=== PATIENT | male | born 1970 | race Caucasian/White ===

== ENCOUNTER 2020-10-11 11:07 | Emergency (ER) | payer OTHER ==
[2020-10-11] MEDS ORDERED: DIPH,PERTUS(ACELL)TETVAC-LF 0.5 ML VIAL IM ONE (14:39)
--- NOTE | 2020-10-11 14:42 | ED ---
Fall HPI - General Chief Complaint: Fall Stated Complaint: [facility]-head injury Source: patient Mode of arrival: ambulatory - History of Present Illness Initial Comments: 50-year-old male presenting to the emergency room with chief complaint of a laceration. Patient states he was at work when he had a mechanical fall and hit his head on a machine on the way down. Patient denies any loss of consciousness but did reports some his initial initially which has since resolved. He does report mild swelling on his forehead and a small laceration. Reports the bleeding has since resolved. Denies any headaches, lightheadedness or dizziness since. Denies one sided weakness and paresthesias, blurry vision or gait instability. Tetanus not up-to-date. - Related Data Allergies Allergy/AdvReac Type Severity Reaction Status Date / Time No Known Allergies Allergy Verified 10/11/20 12:33 Review of Systems ROS Statement: Those systems with pertinent positive or pertinent negative responses have been documented in the HPI. ROS Other: All systems not noted in ROS Statement are negative. Past Medical History Past Medical History: No Reported History History of Any Multi-Drug Resistant Organisms: None Reported Past Surgical History: No Surgical Hx Reported Past Psychological History: No Psychological Hx Reported Smoking Status: Current every day smoker Past Alcohol Use History: Occasional Past Drug Use History: None Reported General Exam Limitations: no limitations General appearance: alert, in no apparent distress Head exam: Present: normocephalic, normal inspection. Absent: atraumatic (Small hematoma on the left upper forehead. Small laceration measuring approximately 5 mm.), other (Negative Rosales sign, raccoon eyes, hemotympanum.) Eye exam: Present: normal appearance, PERRL, EOMI Pupils: Present: normal accommodation ENT exam: Present: normal exam, normal oropharynx, mucous membranes moist Neck exam: Present: normal inspection, full ROM. Absent: tenderness Respiratory exam: Present: normal lung sounds bilaterally. Absent: respiratory distress, wheezes, rales, rhonchi, stridor, chest wall tenderness Cardiovascular Exam: Present: regular rate, normal rhythm, normal heart sounds Extremities exam: Present: normal inspection, full ROM, normal capillary refill. Absent: tenderness Back exam: Present: normal inspection, full ROM. Absent: tenderness, CVA tenderness (R), CVA tenderness (L) Neurological exam: Present: alert, oriented X3 Psychiatric exam: Present: normal affect, normal mood Skin exam: Present: warm, dry, intact, normal color Course Vital Signs 10/11/20 12:30 Temperature 98.7 F Pulse Rate 84 Respiratory 20 Rate Blood Pressure 160/96 O2 Sat by Pulse 99 Oximetry Medical Decision Making - Medical Decision Making 50-year-old male presents to the emergency department with a chief complaint of a laceration. On physical examination, patient does have a hematoma and a small laceration that does not need laceration repair. I did apply a Steri-Strip. Tetanus was updated. I did offer CT imaging of the head, he declined. Advised the patient to follow-up with his primary care physician. Advised them to return to emergency department if symptoms worsen. Advised physical mental rest over the next 2-3 days. Case discussed with Disposition Clinical Impression: Fall, Laceration Disposition: HOME SELF-CARE Condition: Stable Instructions (If sedation given, give patient instructions): Fall Prevention (ED) Additional Instructions: Please return to the Emergency Department if symptoms worsen or any other concerns. Is patient prescribed a controlled substance at d/c from ED?: No Referrals: None,Stated [Primary Care Provider] - 1-2 days Time of Disposition: 14:42
[2020-10-11 15:36] VITALS: BP 170/100; PULSE 81; RESP 18; TEMP 98.4
== END 2020-10-11 15:10 | disposition home or self-care (01) ==
LOC: EC 11:07
DX: S01.81XA Laceration without foreign body of other part of head, initial encounter (principal); F17.200 Nicotine dependence, unspecified, uncomplicated; Z23 Encounter for immunization; W01.198A Fall on same level from slipping, tripping and stumbling with subsequent striking against other object, initial encounter; Y92.69 Other specified industrial and construction area as the place of occurrence of the external cause; Y99.0 Civilian activity done for income or pay
CPT/HCPCS: 90471; 90715; 99282

== ENCOUNTER 2024-03-19 07:22 | Emergency (ER) | payer SELFPAY ==
[2024-03-19 07:26] VITALS: TEMP 98
[2024-03-19 07:52] VITALS: RESP 18
--- NOTE | 2024-03-19 07:53 | ED ---
Back Pain HPI - General Chief Complaint: Back Pain/Injury Stated Complaint: Fall/Back Pain Time Seen by Provider: 03/19/24 07:34 Source: patient Limitations: no limitations - History of Present Illness Initial Comments: 53 year old male presents to emergency department with chief complaints of right rib and back pain. Patient reports fall two days ago unrelated to syncope, denie s hitting head, does report right elbow tenderness. Pain is 8/10, radiating from right ribs to spine. Denies loss of consciousness, chest pain, shortness of breath, abdominal pain, and hematuria. MD Complaint: fall - Related Data Allergies Allergy/AdvReac Type Severity Reaction Status Date / Time No Known Allergies Allergy Verified 10/11/20 12:33 Review of Systems ROS Statement: Those systems with pertinent positive or pertinent negative responses have been documented in the HPI. ROS Other: All systems not noted in ROS Statement are negative. Past Medical History Past Medical History: No Reported History Additional Past Medical History / Comment(s): tremors History of Any Multi-Drug Resistant Organisms: None Reported Past Surgical History: No Surgical Hx Reported Past Psychological History: No Psychological Hx Reported Smoking Status: Current every day smoker Past Alcohol Use History: Occasional Past Drug Use History: None Reported General Exam Limitations: no limitations Head exam: Present: atraumatic, normocephalic, normal inspection Eye exam: Present: normal appearance, PERRL, EOMI. Absent: scleral icterus, conjunctival injection, periorbital swelling Pupils: Present: normal accommodation ENT exam: Present: normal exam, mucous membranes moist Neck exam: Present: normal inspection. Absent: tenderness, meningismus, lymphadenopathy Respiratory exam: Present: normal lung sounds bilaterally, chest wall tenderness. Absent: respiratory distress, wheezes, rales, rhonchi, stridor Cardiovascular Exam: Present: regular rate, normal rhythm, normal heart sounds. Absent: systolic murmur, diastolic murmur, rubs, gallop, clicks GI/Abdominal exam: Present: soft, normal bowel sounds. Absent: distended, tenderness, guarding, rebound, rigid Extremities exam: Present: full ROM Right General: Present: abrasion Elbow exam: Present: swelling, abrasion, erythema Back exam: Present: full ROM, tenderness (right rib), CVA tenderness (R), paraspinal tenderness. Absent: vertebral tenderness Neurological exam: Present: alert, oriented X3, CN II-XII intact, normal gait Psychiatric exam: Present: normal affect, normal mood Skin exam: Present: warm, dry, intact, normal color. Absent: rash Course Vital Signs 03/19/24 03/19/24 03/19/24 07:24 07:51 08:45 Temperature 98 F 98 F Pulse Rate 100 84 Respiratory 20 18 Rate Blood Pressure 169/115 180/107 177/93 O2 Sat by Pulse 98 99 Oximetry 03/19/24 09:39 Temperature 98 F Pulse Rate 83 Respiratory 18 Rate Blood Pressure 171/89 O2 Sat by Pulse 99 Oximetry Medical Decision Making - Medical Decision Making Was pt. sent in by a medical professional or institution (, PA, PALLET RECTIFIER, urgent care, hospital, or half-way...) When possible be specific @ -No Did you speak to anyone other than the patient for history (EMS, parent, family, police, friend...)? What history was obtained from this source @ -No Did you review nursing and triage notes (agree or disagree)? Why? @ -I reviewed and agree with nursing and triage notes Were old charts reviewed (outside hosp., previous admission, EMS record, old EKG, old radiological studies, urgent care reports/EKG's, half-way records)? Report findings @ -No old charts were reviewed Differential Diagnosis (chest pain, altered mental status, abdominal pain women, abdominal pain men, vaginal bleeding, weakness, fever, dyspnea, syncope, headache, dizziness, GI bleed, back pain, seizure, CVA, palpatations, mental health, musculoskeletal)? @ -Differential Back Pain: Strain, zoster, cauda equina syndrome, epidural abscess, vertebral osteomyelitis, discitis, fracture, subluxation, disc herniation, DJD, spinal stenosis, dissection, AAA, pancreatitis, peptic ulcer disease, pyelonephritis, kidney stone, this is not meant to be an all-inclusive list. EKG interpreted by me (3pts min.). @ -None X-rays interpreted by me (1pt min.). @ -X-ray rib series with chest x-ray showing millimeters place rib fracture no pneumothorax CT interpreted by me (1pt min.). @ -None done U/S interpreted by me (1pt. min.). @ -None done What testing was considered but not performed or refused? (CT, X-rays, U/S, labs)? Why? @ -None What meds were considered but not given or refused? Why? @ -None Did you discuss the management of the patient with other professionals (professionals i.e. , PA, PALLET RECTIFIER, lab, RT, psych nurse, long term care social worker, toy department manager, teacher, loan workout officer, geriatric case manager)? Give summary @ -No Was smoking cessation discussed for >3mins.? @ -No Was critical care preformed (if so, how long)? @ -No Were there social determinants of health that impacted care today? How? (Homelessness, low income, unemployed, alcoholism, drug addiction, transportation, low edu. Level, literacy, decrease access to med. care, [facility], rehab)? @ -No Was there de-escalation of care discussed even if they declined (Discuss DNR or withdrawal of care, Hospice)? DNR status @ -No What co-morbidities impacted this encounter? (DM, HTN, Smoking, COPD, CAD, Cancer, CVA, ARF, Chemo, Hep., AIDS, mental health diagnosis, sleep apnea, morbid obesity)? @ -None Was patient admitted / discharged? Hospital course, mention meds given and route, prescriptions, significant lab abnormalities, going to OR and other pertinent info. @ -Discharge patient has a rib fracture patient is not hypoxic and having no severe pain. We discussed incentive spirometry and analgesics [id number] patient will recheck in 24 hours return for as discussed Undiagnosed new problem with uncertain prognosis? @ -No Drug Therapy requiring intensive monitoring for toxicity (Heparin, Nitro, Insulin, Cardizem)? @ -No Were any procedures done? @ -No Diagnosis/symptom? @ -Fall, rib fracture Acute, or Chronic, or Acute on Chronic? @ -[Acute Uncomplicated (without systemic symptoms) or Complicated (systemic symptoms)? @ -Uncomplicated Side effects of treatment? @ -No Exacerbation, Progression, or Severe Exacerbation? @ -No Poses a threat to life or bodily function? How? (Chest pain, USA, SC, pneumonia, PE, COPD, DKA, ARF, appy, cholecystitis, CVA, Diverticulitis, Homicidal, Suicidal, threat to staff... and all critical care pts) @ -No Disposition Clinical Impression: Right rib fracture Disposition: HOME SELF-CARE Condition: Good Instructions (If sedation given, give patient instructions): Rib Fracture (ED) Additional Instructions: Please return to ER for any concerns. Is patient prescribed a controlled substance at d/c from ED?: No Referrals: None,Stated [Primary Care Provider] - 1-2 days Time of Disposition: 09:18
[2024-03-19] MEDS: HYDROmorphone 1 MG/ML 1 ML SYRINGE IM STA (08:02)
--- NOTE | 2024-03-19 08:47 | XR ---
EXAMINATION TYPE: XR ribs bilat w pa chest xray DATE OF EXAM: 03/19/2024 COMPARISON: NONE HISTORY: Pain TECHNIQUE: Single view of the chest 8 views of the ribs are submitted. FINDINGS: The lungs are clear. No Evidence for pneumothorax. No evidence for focal contusion. Medi astinal structures are midline. Fracture posterior right rib #8. Also deformity of right rib #10 late rally of uncertain age. No displaced left-sided rib fractures seen at this time. IMPRESSION: As above
[2024-03-19 09:41] VITALS: BP 171/89; PULSE 83
== END 2024-03-19 09:41 | disposition home or self-care (01) ==
LOC: EC 07:22
DX: S22.31XA Fracture of one rib, right side, initial encounter for closed fracture (principal); F17.200 Nicotine dependence, unspecified, uncomplicated; X58.XXXA Exposure to other specified factors, initial encounter
CPT/HCPCS: 71111; 99283; 96372; J1170